=== PATIENT | female | born 1975 | race Hispanic/Latino ===

== ENCOUNTER 2024-08-17 08:11 | Outpatient (CLI) | payer OTHER | END 2024-08-17 08:12 | disposition home or self-care (01) | LOC: CSHMAMMO 08:11 | PROVIDERS: ATTEND Advanced Practice Midwife | DX: Z12.31 Encounter for screening mammogram for malignant neoplasm of breast (principal); N64.89 Other specified disorders of breast | CPT/HCPCS: 77063; 77067 ==

== ENCOUNTER 2024-09-12 08:34 | Outpatient (CLI) | payer OTHER | END 2024-09-12 08:35 | disposition home or self-care (01) | LOC: CSHMAMMO 08:34 | PROVIDERS: ATTEND Advanced Practice Midwife | DX: N64.89 Other specified disorders of breast (principal) | CPT/HCPCS: G0279 ==